=== PATIENT | male | born 1965 | race Caucasian/White ===

== ENCOUNTER → 2021-04-20 | Outpatient (CLI) | payer OTHER ==
--- NOTE | 2021-04-21 01:58 | MR ---
EXAMINATION TYPE: MR brain wo/w con DATE OF EXAM: 04/20/2021 COMPARISON: None HISTORY: Lung cancer, evaluate for metastatic disease. CONTRAST: Standard multiplanar, multisequence MRI departmental protocol images were obtained without contrast a nd with 7 mL intravenous Gadavist gadolinium contrast. Ventricles have normal size. There is no mass effect or midline shift. There is no sign of intracrani al hemorrhage. There is no evidence of cerebral edema. Diffusion images show no evidence of an acute infarct. The brainstem is intact. Corpus callosum is intact. Sella turcica appears normal. There is no evidenc e of orbital mass. There is mucosal thickening right maxillary sinus. Contrast images show no pathologic enhancement. There is normal enhancement of the venous sinuses. Th ere is no evidence of posterior fossa mass. IMPRESSION: Normal MR scan of the brain. No evidence of metastatic disease.
== END | disposition home or self-care (01) ==
LOC: RADMRIMAIN 17:26
PROVIDERS: ATTEND Internal Medicine Hematology & Oncology
DX: C34.32 Malignant neoplasm of lower lobe, left bronchus or lung (principal)
CPT/HCPCS: 70553; A9585